=== PATIENT | female | born 1950 | race Caucasian/White ===

== ENCOUNTER 2016-10-21 11:23 | Day surgery (SDC) | payer MEDICARE, BC ==
--- NOTE | ~2016-10-21 | EGD ---
EGD REPORT [facility] [address] [address] NAME: TRI VERNON : [birth year] STATUS : REG [facility]#: [id number] AGE: 66 ADM/REG DATE : 10/21/16 MR#: [id number] REPORT SERV DATE: 10/21/16 DICTATED BY: ANDREZ MARTINEZ DATE: 10/21/16 REPORT STATUS : Draft TRANSCRIBED BY: [facility] DATE: 10/21/16 Endoscopy Center Patient Name: Tri Vernon Date of : 1950 Attending MD: ANDREZ MARTINEZ MD Procedure Date No Time: 10/21/2016 Procedure: Colonoscopy Indications: Hematochezia, Change in bowel habits, Constipation (last colon 2014) Referring MD: Inna Mcfarlane MD Medicines: See the Anesthesia note for documentation of the administered medications Complications: No immediate complications. Procedure: Pre-Anesthesia Assessment: - ASA Grade Assessment: II - A patient with mild systemic disease. After I obtained informed consent, the scope was passed under direct vision. Throughout the procedure, the patient's blood pressure, pulse, and oxygen saturations were monitored continuously. The PCF [id number] was introduced through the anus and advanced to the cecum, identified by appendiceal orifice and ileocecal valve. The colonoscopy was performed without difficulty. The patient tolerated the procedure well. The quality of the bowel preparation was adequate. Findings: The perianal and digital rectal examinations were normal. Diverticula were found in the sigmoid colon. Internal hemorrhoids were found during retroflexion. Four sessile polyps were found in the descending colon. The polyps were small in size. These polyps were removed with a cold biopsy forceps. Resection and retrieval were complete. A sessile polyp was found in the transverse colon. The polyp was small in size. The polyp was removed with a cold biopsy forceps. Resection and retrieval were complete. Impression: - Diverticulosis in the sigmoid colon. - Internal hemorrhoids. - Four small polyps in the descending colon. Resected and retrieved. - One small polyp in the transverse colon. Resected and retrieved. Recommendation: - Patient has a contact number available for EGD REPORT [address] [address] NAME: TRI VERNON : [birth year] [place]US : [place] [facility] [place]#: [id number] AGE: 66 ADM/REG DATE : 10/21/16 MR#: [id number] REPORT SERV DATE: 10/21/16 DICTATED BY: ANDREZ MARTINEZ DATE: 10/21/16 REPORT STATUS : Draft TRANSCRIBED BY: [employer] SERVICES DATE: 10/21/16 emergencies. The signs and symptoms of potential delayed complications were discussed with the patient. Return to normal activities tomorrow. Written discharge instructions were provided to the patient. - Regular diet. - Continue present medications. - Repeat colonoscopy for surveillance based on pathology results. - FOR YOUR BIOPSY RESULTS: Please go to [email or web address] and register to receive your results via the portal. Your biopsy results will be posted there in about 7 to 10 days. IF you do not see result in 10 days, call office. - Follow up with my nurse practitioner in 4 weeks Procedure Code(s): --- Professional --- 75848, Colonoscopy, flexible, proximal to splenic flexure; with biopsy, single or multiple Diagnosis Code(s): --- Professional --- K64.8, Other hemorrhoids K57.30, Diverticulosis of large intestine without perforation or abscess without bleeding D12.3, Benign neoplasm of transverse colon D12.4, Benign neoplasm of descending colon K92.1, Melena R19.4, Change in bowel habit K59.00, Constipation, unspecified CPT copyright 2013 [employer]. All rights reserved. The codes documented in this report are preliminary and upon consumer attorney review may be revised to meet current compliance requirements. Andrez Martinez MD ANDREZ MARTINEZ MD 10/21/2016 1:12 PM This report has been signed electronically. Number of Addenda: 0 Note Initiated On: 10/21/2016 12:25 PM Scope Withdrawal Time 0 hours 13 minutes 3 seconds [address] [place] [address]
--- NOTE | ~2016-10-21 | EGD ---
EGD REPORT [facility] [address] [address] NAME: TRI VERNON : [birth year] STATUS : REG [facility]#: [id number] AGE: 66 ADM/REG DATE : 10/21/16 MR#: [id number] REPORT SERV DATE: 10/21/16 DICTATED BY: ANDREZ MARTINEZ DATE: 10/21/16 REPORT STATUS : Draft [facility] DATE: 10/21/16 Endoscopy Center Patient Name: Tri Vernon Date of : 1950 Attending MD: ANDREZ MARTINEZ MD Procedure Date No Time: 10/21/2016 Procedure: Upper GI endoscopy Indications: Gastro-esophageal reflux disease, Nausea Referring MD: Inna Mcfarlane MD Medicines: See the Anesthesia note for documentation of the administered medications Complications: No immediate complications. Procedure: Pre-Anesthesia Assessment: - ASA Grade Assessment: III - A patient with severe systemic disease. After obtaining informed consent, the endoscope was passed under direct vision. Throughout the procedure, the patient's blood pressure, pulse, and oxygen saturations were monitored continuously. The GIF H190 [id number] was introduced through the mouth, and advanced to the second part of duodenum. The upper GI endoscopy was accomplished without difficulty. The patient tolerated the procedure well. Findings: The examined duodenum was normal. Mild inflammation was found in the gastric antrum. Biopsies were taken with a cold forceps for histology. The cardia and gastric fundus were normal on retroflexion. Gastric avms Impression: - Normal examined duodenum. - Gastritis. Biopsied. - Gastric avms Recommendation: - Patient has a contact number available for emergencies. The signs and symptoms of potential delayed complications were discussed with the patient. Return to normal activities tomorrow. Written discharge instructions were provided to the patient. - Regular diet. - Continue present medications. - FOR YOUR BIOPSY RESULTS: Please go to [email or web address] and register to receive your results via the portal. Your biopsy results will be EGD REPORT [address] [place]. [address] NAME: TRI VERNON : [birth year] STATUS : REG [facility] [place] PAT#: [id number] AGE: 66 ADM/REG DATE : 10/21/16 MR#: [id number] REPORT SERV DATE: 10/21/16 DICTATED BY: ANDERZ MARTINEZ DATE: 10/21/16 REPORT STATUS : Draft TRANSCRIBED BY: [employer] DATE: 10/21/16 posted there in about 7 to 10 days. IF you do not see result in 10 days, call office. Procedure Code(s): --- Professional --- 46752, Esophagogastroduodenoscopy, flexible, transoral; with biopsy, single or multiple Diagnosis Code(s): --- Professional --- K29.70, Gastritis, unspecified, without bleeding K21.9, Gastro-esophageal reflux disease without esophagitis R11.0, Nausea CPT copyright 2013 [employer]. All rights reserved. The codes documented in this report are preliminary and upon gathering machine setter review may be revised to meet current compliance requirements. Andrez Martinez MD ANDREZ MARTINEZ MD 10/21/2016 12:45 PM This report has been signed electronically. Number of Addenda: 0 Note Initiated On: 10/21/2016 12:27 PM Scope Withdrawal Time 0 hours 0 minutes 0 seconds [address] [address]
[~2016-10-21 11:23] MED LIST: AMB10 PO; B COMPLETE PO; CYMBALTA60 PO; LIPITOR20 PO; OTC VITAMINS; PRIN10 PO; SYN88 PO; XANAX1 MG PO; ZOMIG ZMT5 MG PO
== END 2016-10-21 23:59 | disposition home or self-care (01) ==
LOC: DMU 11:23
PROVIDERS: Internal Medicine Gastroenterology
PROC: 0DB68ZX Excision of Stomach, Via Natural or Artificial Opening Endoscopic, Diagnostic (ICD-10-PCS; 2016-10-21)
PROC: 0DBM8ZX Excision of Descending Colon, Via Natural or Artificial Opening Endoscopic, Diagnostic (ICD-10-PCS; principal; 2016-10-21 13:30)
PROC: 0DBL8ZX Excision of Transverse Colon, Via Natural or Artificial Opening Endoscopic, Diagnostic (ICD-10-PCS; 2016-10-21 13:30)
DX: D12.4 Benign neoplasm of descending colon (principal); D12.3 Benign neoplasm of transverse colon; K64.8 Other hemorrhoids; K29.70 Gastritis, unspecified, without bleeding; K57.30 Diverticulosis of large intestine without perforation or abscess without bleeding; F41.9 Anxiety disorder, unspecified; F32.9 Major depressive disorder, single episode, unspecified; E78.00 Pure hypercholesterolemia, unspecified; I10 Essential (primary) hypertension; K21.9 Gastro-esophageal reflux disease without esophagitis
CPT/HCPCS: 88305